=== PATIENT | female | born 1955 | race Caucasian/White ===

== ENCOUNTER 2019-12-20 11:56 | Emergency (ER) | payer OTHER, MEDICARE ==
[2019-12-20] MEDS ORDERED: Albuterol Sulfate 2.5 mg/3 ml Neb ONE ×3 (12:17→13:29)
[2019-12-20 12:29] LABS: #Basophils 0.1 thou/uL (0.0-0.2); #Eosinphils 0.2 thou/uL (0.0-0.7); #Lymphocytes 1.2 thou/uL (1.20-3.40); #Monocytes 0.5 thou/uL (0.11-0.59); #Neutrophils 4.9 thou/uL (1.40-6.50); %Basophils 0.8 % (0.0-1.0); %Eosinophils 3.4 % (0.0-10.0); %Lymphocytes 17.3 % (21.0-51.0); %Monocytes 6.8 % (0.0-10.0); %Neutrophils 71.6 % (42.0-75.0); Hemoglobin 15.1 g/dL (12.0-16.0); Mean Corpuscular HGB CONC 33.3 g/dL (32.0-36.0); Mean Corpuscular Hemoglobin 29.2 pg (27.0-31.0); Mean Corpuscular Volume 87.6 fL (78.0-98.0); Mean Platelet Volume 7.5 fL (7.4-10.4); Platelet Count 267 thou/uL (130-400); RBC Distribution Width 12.2 % (11.5-14.5); Red Blood Cell (RBC) Count 5.18 mill/uL (4.20-5.40); White Blood Cell (WBC) Count 6.8 thou/uL (4.8-10.8)
[2019-12-20 12:30] LABS: Bicarbonate (HCO3v) 27.4 mmol/L (22.0-28.0); CO2 Tension (PvCO2) 44.6 mmHg (40.0-50.0); Chloride 102 mmol/L (98-107); Hemoglobin - Calc 15.3 g/dL (12.0-16.0); Potassium 3.9 mmol/L (3.5-5.1); Sodium 139 mmol/L (138-145); T. Carbon Dioxide 28.8 mmol/L (22.0-28.0); vO2 Saturation-calc 83.6 % (60.0-85.0)
--- NOTE | 2019-12-20 12:39 | RAD ---
EXAM: CHEST ONE VIEW HISTORY: Dyspnea COMPARISON: 1 view chest 08/14/2003 FINDINGS: The cardiac silhouette and pulmonary vasculature is within normal limits. The lungs are hyperexpanded with mild flattening of the hemidiaphragms and bullous emphysematous changes seen in the upper lung zones greater on the right. Radiopaque sutures are seen in the right upper lobe with parenchymal as well as pleural and parenchymal changes right upper lobe and right lung apex probably attributable to pleural and parenchymal scarring. Minimal pleural thickening is seen in the left lung apex. No consolidation or pleural fluid is identified. Right convex curvature thoracic spine is seen on today's exam. IMPRESSION: 1. Evidence of COPD. 2. Postsurgical changes right upper lobe with findings likely attributable to pleural and parenchymal scarring right upper lobe and right lung apex. 3. No acute cardiopulmonary process.
[2019-12-20 12:42] LABS: ALT (SGPT) Less than 7 U/L (8-55); AST (SGOT) 12 U/L (5-34); Albumin 4.6 g/dL (3.4-4.8); Alkaline Phosphatase 84 U/L (40-110); Anion Gap 14 mmol/L (10-20); BUN (Urea Nitrogen) 12 mg/dL (9.8-20.1); Bilirubin, Total 0.8 mg/dL (0.2-1.2); Calc. Creatinine Clearance 0 mL/min (70-130); Calcium 9.7 mg/dL (7.8-10.44); Carbon Dioxide 27 mmol/L (23-31); Chloride 101 mmol/L (98-107); Estimated GFR-MDRD 50; Globulin 2.9 g/dL (2.4-3.5); Glucose 116 mg/dL (80-115); Protein, Total 7.5 g/dL (6.0-8.3); Sodium 138 mmol/L (136-145)
[2019-12-20] MEDS ORDERED: predniSONE 20 MG TAB ONE (13:19)
[2019-12-20] MEDS ORDERED: Albuterol Sulfate 2.5 mg/0.5 ml Neb ONE (13:29)
--- NOTE | 2019-12-25 14:20 | EKG ---
Test Reason : Blood Pressure : / mmHG Vent. Rate : 097 BPM Atrial Rate : 097 BPM P-R Int : 132 ms QRS Dur : 078 ms QT Int : 338 ms P-R-T Axes : 075 075 055 degrees QTc Int : 429 ms Normal sinus rhythm Biatrial enlargement Nonspecific ST abnormality Abnormal ECG Reconfirmed by LIVIA MOULTON ([id number]), brands editor PRINCE FINCH ([id number] on 12/25/2019 2:19:54 PM Referred By: Confirmed By:LIVIA Ho
== END 2019-12-20 15:05 | disposition home or self-care (01) ==
LOC: ERS 11:56
DX: R06.02 Shortness of breath (principal); F32.9 Major depressive disorder, single episode, unspecified; J43.9 Emphysema, unspecified; I10 Essential (primary) hypertension; Z87.891 Personal history of nicotine dependence
CPT/HCPCS: 71045; 80053; 82330; 82803; 83605; 83880; 84484; 85025; 87804; 93005; 94644; J7512; J7611; J7620

== ENCOUNTER 2021-10-07 11:06 | Emergency (ER) | payer OTHER, MEDICARE ==
[2021-10-07] MEDS ORDERED: Magnesium 2 GM/50 ML BAG (IN WATER) ONE (11:57)
[2021-10-07] MEDS ORDERED: methylPREDNISolone Sod Succ/PF 125 MG/2 ML VIAL ONE (11:57)
[2021-10-07] MEDS ORDERED: Albuterol Sulfate 2.5 mg/0.5 ml Neb ONE (11:57)
[2021-10-07] MEDS ORDERED: Albuterol Sulfate 2.5 mg/3 ml Neb ONE (11:57)
[2021-10-07] MEDS ORDERED: Ipratropium Bromide 2.5 ml Neb ONE (11:57)
[2021-10-07 12:19] LABS: #Basophils 0.1 thou/uL (0.0-0.2); #Eosinphils 0.3 thou/uL (0.0-0.7); #Monocytes 0.5 thou/uL (0.11-0.59); %Basophils 0.7 % (0.0-1.0); %Eosinophils 3.3 % (0.0-10.0); %Lymphocytes 12.4 % (21.0-51.0); %Monocytes 6.2 % (0.0-10.0); %Neutrophils 77.5 % (42.0-75.0); Hemoglobin 14.3 g/dL (12.0-16.0); Mean Corpuscular HGB CONC 32.5 g/dL (32.0-36.0); Mean Corpuscular Hemoglobin 29.6 pg (27.0-31.0); Mean Corpuscular Volume 91.2 fL (78.0-98.0); Mean Platelet Volume 6.9 fL (7.4-10.4); Platelet Count 254 thou/uL (130-400); RBC Distribution Width 11.7 % (11.5-14.5); Red Blood Cell (RBC) Count 4.84 mill/uL (4.20-5.40); White Blood Cell (WBC) Count 7.7 thou/uL (4.8-10.8)
[2021-10-07 12:38] LABS: ALT (SGPT) 8 U/L (8-55); AST (SGOT) 17 U/L (5-34); Albumin 4.5 g/dL (3.4-4.8); Alkaline Phosphatase 96 U/L (40-110); Anion Gap 11 mmol/L (10-20); BUN (Urea Nitrogen) 13 mg/dL (9.8-20.1); Bilirubin, Total 0.6 mg/dL (0.2-1.2); Calc. Creatinine Clearance 0 mL/min (70-130); Carbon Dioxide 31 mmol/L (23-31); Chloride 100 mmol/L (98-107); Globulin 3.1 g/dL (2.4-3.5); Glucose 94 mg/dL (80-115); Potassium 4.1 mmol/L (3.5-5.1); Protein, Total 7.6 g/dL (5.8-8.1); Sodium 138 mmol/L (136-145)
[2021-10-07 19:57] LABS: SARS-CoV-2 PCR by NAA Not Detected (NotDetected)
== END 2021-10-07 13:28 | disposition home or self-care (01) ==
LOC: ERS 11:06
DX: J44.1 Chronic obstructive pulmonary disease with (acute) exacerbation (principal); I10 Essential (primary) hypertension; Z87.891 Personal history of nicotine dependence
CPT/HCPCS: 71045; 80053; 83880; 84484; 85025; 93005; 94644; 96365; 96375; J2930; J3475; J7611; U0003; U0005